=== PATIENT | male | born 1955 ===

== ENCOUNTER 2019-03-02 00:30 | Emergency (ER) | payer SELFPAY ==
[2019-03-02 01:03] VITALS: TEMP 97.9
[2019-03-02 01:52] VITALS: RESP 20
[2019-03-02 01:53] VITALS: BP 147/74; PULSE 76; O2SAT 98
== END 2019-03-02 01:18 | disposition home or self-care (01) | DRG 305 ==
LOC: ED 00:30
DX: I10 Essential (primary) hypertension (principal); S00.03XA Contusion of scalp, initial encounter; W18.30XA Fall on same level, unspecified, initial encounter; F10.129 Alcohol abuse with intoxication, unspecified
CPT/HCPCS: 99283; G0390